=== PATIENT | male | born 1955 | race Caucasian/White ===

== ENCOUNTER → 2019-11-15 09:40 | Outpatient (CLI) | payer BC, SELFPAY ==
--- NOTE | ~2019-11-15 | MR_ITS ---
EXAMINATION: MR shoulder RT wo con DATE: 11/15/2019 10:33 INDICATION: Right shoulder pain radiating from the neck into the right arm. TECHNIQUE: Magnetic resonance imaging (MRI) of the right shoulder was performed without intravenous c ontrast. Sequences included axial PD-weighted FS FSE, coronal oblique PD-weighted FS FSE, coronal obl ique T2-weighted FS FSE, sagittal PD-weighted FS FSE, and sagittal T1-weighted SE. COMPARISON: None. FINDINGS: Coracoacromial arch: The acromion undersurface is curved in morphology (type II). The coracoacromial ligament is normal. M ild acromioclavicular osteoarthritis. Rotator cuff: The supraspinatus, subscapularis and teres minor tendons are normal. Mild tendinopathy without discre te tear at the distal infraspinatus tendon. Normal rotator cuff muscle bulk and signal. Biceps tendon, glenoid labrum and glenohumeral cartilage: Mild tendinopathy and longitudinal split tearing of the long head biceps tendon. Linear increased sig nal extending peripherally into the 12:00 position of the superior glenoid labrum consistent with sma ll labral tear. There is degeneration with mild increased signal and irregular margins to the posteri or superior glenoid labrum. Glenohumeral cartilage is normal. Fluid: Physiologic amount of fluid in the glenohumeral joint and biceps tendon sheath. No loose osteochondra l bodies. Minimally increased fluid signal along the subacromial/subdeltoid bursa consistent with neg ligible bursitis. Bones: Normal marrow signal with no edema, fracture or abnormal marrow replacing process. Mild cystic change at the greater tuberosity along the middle facet footplate of the infraspinatus tendon. IMPRESSION: 1. Mild infraspinatus tendinopathy without discrete tear. 2. Small tear at the superior glenoid labrum with less well-defined degeneration at the posterior sup erior labrum. 3. Mild tendinopathy and longitudinal split tearing of the long head biceps tendon. 4. Mild acromioclavicular osteoarthritis. Reviewed, dictated and finalized at location A. IMPRESSION: 1. Mild infraspinatus tendinopathy without discrete tear. 2. Small tear at the superior glenoid labrum with less well-defined degeneratio n at the posterior superior labrum. 3. Mild tendinopathy and longitudinal split tearing of the long head biceps ten don. 4. Mild acromioclavicular osteoarthritis.
== END ==
PROVIDERS: PCP Family Medicine; Visit Provider Orthopaedic Surgery
DX: M19.011 Primary osteoarthritis, right shoulder (principal)
CPT/HCPCS: 73221

== ENCOUNTER 2019-12-02 12:37 | Outpatient (CLI) | payer BC, SELFPAY ==
--- NOTE | ~2019-12-02 | XR_ITS ---
EXAMINATION: XR lg joint inject/asp w image DATE: 12/02/2019 13:42 INDICATION: Right shoulder pain TECHNIQUE: A time-out was performed to verify the patient's name, date of , and procedure to b e performed. The procedure including the risks, benefits, and alternatives was discussed with the pat ient. Risks discussed included bleeding and infection. The patient understood the risks and agreed to proceed. The skin overlying the rotator cuff interval of the right glenohumeral joint was prepped a nd draped in usual sterile fashion. Anesthetic was administered with 1% lidocaine subcutaneously. A 22 G needle was advanced under fluoroscopic guidance into the joint. Injection of 0.6 mL of Omnipaq ue 240 confirmed intra-articular position of the needle. Subsequently, injectate consisting of 4 mL of a 3:1 mixture of 1% lidocaine: 80 mg/mL Depo-Medrol for a total dose of 80 mg Depo-Medrol was inst illed. Washout of contrast was seen confirming intra-articular administration. The needle was removed and the entry site was cleaned and dressed. There were no immediate complications. Fluoroscopy expo sure time was 0.1 minutes. The total number of images was 2. FINDINGS: Real-time fluoroscopy demonstrates the needle in the right glenohumeral joint. Patient's pa in prior to procedure:8/10. Patient's pain following the procedure: 0/10. IMPRESSION: 1. Right glenohumeral injection of local anesthetic and steroid with decrease in the patient's presen ting pain. Reviewed, dictated and finalized at location A. IMPRESSION: 1. Right glenohumeral injection of local anesthetic and steroid with decrease i n the patient's presenting pain.
== END 2019-12-02 12:38 | disposition home or self-care (01) ==
PROVIDERS: PCP Family Medicine; Visit Provider Orthopaedic Surgery
DX: M25.511 Pain in right shoulder (principal)
CPT/HCPCS: 20610; 77002; J1040; Q9966

== ENCOUNTER → 2020-10-19 07:45 | Outpatient (CLI) | payer MEDICARE, SELFPAY ==
--- NOTE | ~2020-10-19 | CT_ITS ---
EXAMINATION: CT lung screening EXAM DATE: 10/19/2020 08:25 INDICATION: Z87.891 - Personal history of nicotine dependence. TECHNIQUE: Spiral low dose CT of the chest without contrast. Axial, coronal and sagittal images were reviewed. The dose-length product (DLP) for this examination was 133.07 mGy-cm. The exposure was t ailored according to patient size (auto mA exposure control), and iterative reconstruction (ASIR) was used as additional dose reduction technique. There is no prior study for comparison. FINDINGS: Several punctate nodules likely noncalcified granulomas. There is mild emphysema and hyper inflation. Tracheobronchial tree is patent. There is no mediastinal, hilar or axillary lymphadenop athy. There are no pleural or pericardial effusions. There is no pneumothorax. Heart normal in size. There is mild coronary arterial calcification, arterial sclerosis. Cervical fusion hardware. Upper abdomen is unremarkable. There is thoracic spondylosis without osteoblastic or osteolytic l esions identified. IMPRESSION: Lung-RADS category 2, benign appearance or behavior (<1% chance of malignancy); recommend continued LDCT screening in 1 year. Reviewed, dictated and finalized at location B.
--- NOTE | ~2020-10-19 | US_ITS ---
EXAMINATION: US aorta [facility] DATE: 10/19/2020 08:57 INDICATION: Abdominal aortic aneurysm screening with risk factors of hypertension, hypercholesterolem ia and prior smoking TECHNIQUE: Grayscale, color Doppler, and pulsed Doppler images of the aorta and common iliac arteries were obtained. COMPARISON: None. FINDINGS: The proximal aorta measures 2.4 cm. The mid aorta measures 2.1 cm. The distal aorta measures 2.0 cm. The right common iliac artery measures 1.3 cm. The left common iliac artery measures 1.3 cm. IMPRESSION: 1. Normal caliber abdominal aorta. Reviewed, dictated and finalized at location A.
== END ==
PROVIDERS: PCP Family Medicine; Visit Provider Physician Assistant
DX: Z12.2 Encounter for screening for malignant neoplasm of respiratory organs (principal); Z87.891 Personal history of nicotine dependence; Z13.6 Encounter for screening for cardiovascular disorders
CPT/HCPCS: 71271; 76706

== ENCOUNTER → 2020-11-18 03:15 | Outpatient (CLI) | payer MEDICARE, SELFPAY ==
[2020-11-18 20:00] LABS: SARS-CoV-2 RNA PCR Negative
== END ==
PROVIDERS: PCP Family Medicine; Visit Provider Physician Assistant
DX: J02.9 Acute pharyngitis, unspecified (principal); R09.81 Nasal congestion; R09.89 Other specified symptoms and signs involving the circulatory and respiratory systems; Z20.822 Contact with and (suspected) exposure to COVID-19
CPT/HCPCS: C9803; U0003; U0005

== ENCOUNTER 2020-11-23 11:34 | Emergency (ER) | payer MEDICARE, SELFPAY ==
[2020-11-23 11:45] VITALS: BP 135/82; PULSE 65; RESP 16; TEMP 36.1; O2SAT 99
--- NOTE | 2020-11-23 12:37 | ED.URI ---
HPI - URI/Sore Throat General Chief Complaint: Upper Respiratory Infection Stated Complaint: Congestion,Cough Time Seen by Provider: 11/23/20 12:37 Source: patient, RN notes reviewed and old records reviewed Mode of arrival: ambulatory Limitations: no limitations History of Present Illness HPI Narrative: 65-year-old male who presents to [facility] with complaints of sinus congestion with facial pressure for the past 8 days. Patient states that he had a negative PCR Covid test on the of this month. Patient states that he has history of some sinus problems and he has history of Menieres disease for which he has seen a specialist at [place] and takes betahistine. Patient reports that he has not had a fever, no sore throat, rare cough, denies any chills or body aches. He states that he has been taking Mucinex DM with some improvement in his symptoms. He states that he has an appointment with his physician later in the week. MD elicited complaint: rhinorrhea and nasal congestion Pertinent past history: sinusitis Related Data Allergies Allergy/AdvReac Type Severity Reaction Status Date / Time No Known Allergies Allergy Unknown Verified 11/23/20 11:57 Review of Systems Review of Systems: CONSTITUTIONAL: Denies fever, chills, or sweats. EYES: Denies visual changes, redness, or discharge. ENT: Positive rhinorrhea, congestion, no sore throat, or otalgia has ringing in ears. CARDIOVASCULAR: Denies chest pain, palpitations, or edema. RESPIRATORY: Denies acute cough or dyspnea. GASTROINTESTINAL: Denies abdominal pain, nausea, vomiting, or diarrhea. GENITOURINARY: Denies dysuria or hematuria. SKIN: Denies rash or itching. MUSCULOSKELETAL: Denies back pain, joint pain, or myalgia. NEUROLOGIC: positive frontal headache,no numbness, or weakness. PSYCHIATRIC: Positive history of anxiety or depression. All systems reviewed & are unremarkable except as noted in HPI and below PMFSH Past Medical History Medical History (Updated 11/26/20 @ 13:35 by Shelby Briggs NP) Arthritis Benign prostatic hyperplasia Generalized anxiety disorder Hypertension Meniere disease Mixed hyperlipidemia Surgical History Surgical History (Updated 11/26/20 @ 13:35 by Shelby Briggs NP) H/O hemorrhoidectomy History of fusion of cervical spine Status post fusion of wrist Family History Family History Father Hypertension Family history of elevated blood lipids Social History Social History (Updated 11/26/20 @ 13:38 by Shelby Briggs NP) Smoking status: Former smoker Alcohol intake: current Substance use: never Living arrangements: with family Occupation/Education: retired Gender identity (if verbalized by the patient): Male Exam Narrative: GENERAL: Well-appearing, well-nourished, and in no acute distress. HEAD: Normocephalic, atraumatic. EYES: PERRLA and EOMI. ENT: Nares red with swollen turbinates, clear to light yellow rhinorrhea no epistaxis. Mucous membranes moist.TM's normal with good light reflex, throat mild redness with no lesions or exudates, no tonsil enlargement post nasal drainage noted to back of throat. NECK: Supple.no lymphadenopathy CHEST: Clear to auscultation. No respiratory distress.SAO2 99% on room air, no acute cough or any tachypnea noted HEART: Regular rate and rhythm. No murmur heard. Normal peripheral pulses. ABDOMEN: Soft, nontender, nondistended, normal active bowel sounds. EXTREMITIES: Normal range of motion. No edema. SKIN: Warm, dry, no rash. NEURO: No focal deficits. Alert and oriented x3. Course Vital Signs Vital signs: Vital Signs Temperature 36.1 C L 11/23/20 11:45 Pulse Rate 65 11/23/20 11:45 Respiratory Rate 16 11/23/20 11:45 Blood Pressure 135/82 11/23/20 11:45 Pulse Oximetry 99 11/23/20 11:45 Temperature 36.1 C L 11/23/20 11:45 Pulse Rate 65 11/23/20 11:45 Respiratory Rate 16 11/23/20 11:45 Blood
== END 2020-11-23 13:03 | disposition home or self-care (01) ==
PROVIDERS: Emergency Provider Registered Nurse; PCP Family Medicine
DX: J01.90 Acute sinusitis, unspecified (principal); Z87.891 Personal history of nicotine dependence; M19.90 Unspecified osteoarthritis, unspecified site; I10 Essential (primary) hypertension; E78.5 Hyperlipidemia, unspecified; H81.09 Meniere's disease, unspecified ear; N40.0 Benign prostatic hyperplasia without lower urinary tract symptoms
CPT/HCPCS: 99213; G0463

== ENCOUNTER 2020-12-17 01:02 | Day surgery (SDC) | payer MEDICARE, SELFPAY ==
[2020-12-13 12:28] VITALS: BMI 24.3
[2020-12-17 08:17] VITALS: BP 123/87; PULSE 63; RESP 16; TEMP 35.9; O2SAT 99
[2020-12-17] MEDS: LACTATED RINGERS 1,000 ML 150 ML IV CONT (08:28)
--- NOTE | 2020-12-17 08:30 | WPDGICN ---
Assessment and Plan Assessment and plan (1) Family history of colon cancer in father: Code(s): Z80.0 - Family history of malignant neoplasm of digestive organs Status: Acute Assessment and Plan: Patient's father had colon cancer. For this reason screening colonoscopy is to be performed now and could be considered at 5 year intervals in the future. GI Consult Note Consult date/time: 12/17/20 08:30 HPI: Jose Armando Weinberg is a 65 year old male Presents for screening colonoscopy. Patient reports his current weight appetite bowel movements are normal. He denies abdominal pain. He has had no bleeding. Family history is significant his father had colon cancer at age 83. Patient's last colonoscopy was more than 10 years ago. He presents today for follow-up examination. Review of Systems Review of Systems: All systems reviewed & are unremarkable except as noted in HPI and below PMFSH Past Medical History Medical History (Updated 12/17/20 @ 08:31 by Epi Sommers MD) Arthritis Benign prostatic hyperplasia Generalized anxiety disorder Hypertension Meniere disease Mixed hyperlipidemia Surgical History Surgical History (Updated 11/26/20 @ 13:35 by Shelby Briggs NP) H/O hemorrhoidectomy History of fusion of cervical spine Status post fusion of wrist Family History Family History Father Hypertension Family history of elevated blood lipids Social History Social History (Updated 11/26/20 @ 13:38 by Shelby Briggs NP) Smoking packs per day: 1 Smoking cigarettes per day: 20.0 Years smoked: 40 Smoking pack-years: 40.00 Smoking status: Former smoker Tobacco type: cigarettes Alcohol intake: current Drinks per week: 10 Alcohol use details: WINE Substance use: never Substance use type: does not use Living arrangements: with family Gender identity (if verbalized by the patient): Male Spiritual care concerns: No Meds Home Medications and Allergies Home Medications Medication Instructions Recorded Confirmed Type meclizine 25 mg chewable tablet 25 mg PO BID PRN #90 tablet 11/13/19 12/17/20 Rx amlodipine 5 mg tablet 5 mg PO DAILY #90 tablet 10/01/20 12/17/20 Rx atorvastatin 10 mg tablet 10 mg PO DAILY #90 tablet 10/01/20 12/17/20 Rx buspirone 5 mg tablet 5 mg PO DAILY #90 tablet 10/01/20 12/17/20 Rx escitalopram oxalate 10 mg tablet 10 mg PO DAILY #90 tablet 10/01/20 12/17/20 Rx tamsulosin 0.4 mg capsule 0.4 mg PO DAILY #90 cap 10/01/20 12/17/20 Rx triamterene 37.5 1 tablet PO QAM #90 tablet 10/01/20 12/17/20 Rx mg-hydrochlorothiazide 25 mg tablet Adult Probiotic 1 cap PO DAILY 12/13/20 12/17/20 History Beta-Histine 1 cap PO DAILY 12/13/20 12/17/20 History ascorbic acid (vitamin C) 1 g PO DAILY 12/13/20 12/17/20 History cholecalciferol (vitamin D3) 125 mcg PO DAILY 12/13/20 12/17/20 History [Vitamin D3] digestive enzymes 1 tab-cap PO DAILY 12/13/20 12/17/20 History Allergies Allergy/AdvReac Type Severity Reaction Status Date / Time No Known Allergies Allergy Unknown Verified 12/17/20 08:16 Vital Signs Vital Signs - 24 hr 12/17/20 08:17 Temperature 96.7 F L Pulse Rate 63 Respiratory Rate 16 Blood Pressure 123/87 Pulse Oximetry 99 Exam Narrative: Physical exam reveals patient to be alert. Vital signs stable. HEENT exam is unremarkable. Patient is anicteric. Lungs are clear to auscultation and percussion. Heart is without murmur or extra sounds. Abdominal exam bowel sounds are present soft nontender with no organomegaly. Digital external rectal exam is normal.
--- NOTE | 2020-12-17 08:41 | WPDANESEPPF ---
Anes - Initial Pre Proc Eval Procedure: Operation Date: 12/17/20 09:00 Proposed Procedures p Screening Colonoscopy - Epi Sommers MD Date/Time: 12/17/20 08:41 Surgeon: Epi Sommers MD Pre Op Diagnosis: family hx of colon ca Z80.0 Patient Data Age: 65 Gender: M Height: 1.88 m Weight: 86 kg Last Vital Signs Temp 96.7 F L 12/17/20 08:17 Pulse 63 12/17/20 08:17 Resp 16 12/17/20 08:17 BP 123/87 12/17/20 08:17 Pulse Ox 99 12/17/20 08:17 Allergies Allergy/AdvReac Type Severity Reaction Status Date / Time No Known Allergies Allergy Unknown Verified 12/17/20 08:16 Home Medications Medication Instructions Recorded Confirmed Type meclizine 25 mg chewable tablet 25 mg PO BID PRN #90 tablet 11/13/19 12/17/20 Rx amlodipine 5 mg tablet 5 mg PO DAILY #90 tablet 10/01/20 12/17/20 Rx atorvastatin 10 mg tablet 10 mg PO DAILY #90 tablet 10/01/20 12/17/20 Rx buspirone 5 mg tablet 5 mg PO DAILY #90 tablet 10/01/20 12/17/20 Rx escitalopram oxalate 10 mg tablet 10 mg PO DAILY #90 tablet 10/01/20 12/17/20 Rx tamsulosin 0.4 mg capsule 0.4 mg PO DAILY #90 cap 10/01/20 12/17/20 Rx triamterene 37.5 1 tablet PO QAM #90 tablet 10/01/20 12/17/20 Rx mg-hydrochlorothiazide 25 mg tablet Adult Probiotic 1 cap PO DAILY 12/13/20 12/17/20 History Beta-Histine 1 cap PO DAILY 12/13/20 12/17/20 History ascorbic acid (vitamin C) 1 g PO DAILY 12/13/20 12/17/20 History cholecalciferol (vitamin D3) 125 mcg PO DAILY 12/13/20 12/17/20 History [Vitamin D3] digestive enzymes 1 tab-cap PO DAILY 12/13/20 12/17/20 History Patient hx anesthesia problems: none Family hx anesthesia problems: none Results Review: All pre-operative results and documents have been reviewed as part of the pre-operative evaluation. [facility] Past Medical History Medical History (Updated 12/17/20 @ 08:31 by Epi Sommers MD) Arthritis Benign prostatic hyperplasia Generalized anxiety disorder Hypertension Meniere disease Mixed hyperlipidemia Surgical History Surgical History (Updated 11/26/20 @ 13:35 by Shelby Briggs NP) H/O hemorrhoidectomy History of fusion of cervical spine Status post fusion of wrist Family History Family History Father Hypertension Family history of elevated blood lipids Social History Social History (Updated 11/26/20 @ 13:38 by Shelby Briggs NP) Smoking packs per day: 1 Smoking cigarettes per day: 20.0 Years smoked: 40 Smoking pack-years: 40.00 Smoking status: Former smoker Tobacco type: cigarettes Alcohol intake: current Drinks per week: 10 Alcohol use details: WINE Substance use: never Substance use type: does not use Living arrangements: with family Gender identity (if verbalized by the patient): Male Spiritual care concerns: No Anes - Eval Final PreProcedure Day of Procedure 12/17/20 08:41 Patient weight: overweight Heart: regular rate and rhythm Lungs: clear to auscultation Airway: Mallampati scale class II Neurological: alert and oriented Last oral intake: >/= 8 hours ASA classification: III Emergent: no Anesthetic plan: proceed Anesthesia type and monitoring: general GIVS and standard monitoring Results Review: All pre-operative results and documents have been reviewed as part of the pre-operative evaluation. Informed Consent: The patient's anesthetic plan and its attendant risks and benefits were discussed with the patient/family/POA. Questions were solicited and answers provided to the satisfaction of the patient/family/POA.
[2020-12-17 09:22] VITALS: BP 108/67; PULSE 57; RESP 23; O2SAT 94
[2020-12-17 09:32] VITALS: BP 119/74; PULSE 51; RESP 14; O2SAT 96
[2020-12-17 09:42] VITALS: BP 143/82; PULSE 49; RESP 19; O2SAT 100
== END 2020-12-17 09:46 | disposition home or self-care (01) ==
PROVIDERS: PCP Family Medicine; Visit Provider Internal Medicine Gastroenterology
PROC: 0DJD8ZZ Inspection of Lower Intestinal Tract, Via Natural or Artificial Opening Endoscopic (ICD-10-PCS; CPT 45378; principal; 2020-12-17 09:00)
DX: Z12.11 Encounter for screening for malignant neoplasm of colon (principal); K57.30 Diverticulosis of large intestine without perforation or abscess without bleeding; K64.8 Other hemorrhoids; I10 Essential (primary) hypertension; E78.5 Hyperlipidemia, unspecified; N40.0 Benign prostatic hyperplasia without lower urinary tract symptoms; M19.90 Unspecified osteoarthritis, unspecified site; H81.09 Meniere's disease, unspecified ear; F41.1 Generalized anxiety disorder; Z87.891 Personal history of nicotine dependence; Z80.0 Family history of malignant neoplasm of digestive organs
CPT/HCPCS: G0105; J2001; J2704; J7120

== ENCOUNTER 2021-07-08 14:28 | Emergency (ER) | payer MEDICARE, SELFPAY ==
--- NOTE | ~2021-07-08 | XR_ITS ---
EXAMINATION: 1. XR ankle LT min 3V 2. XR heel LT min 2V DATE: 07/08/2021 14:58 INDICATION: Left ankle pain. Fall. TECHNIQUE: 4 views of left ankle and 2 views of left calcaneus were obtained. COMPARISON: None. FINDINGS: LEFT ANKLE: There is a comminuted joint-depression fracture of calcaneus. There is mild midfoot osteo arthritis. There is ankle soft tissue swelling, lateral worse than medial. LEFT CALCANEUS: There is a comminuted joint-depression fracture of calcaneus with decreased Boehler's angle. There is mild midfoot osteoarthritis. IMPRESSION: 1. Comminuted joint-depression fracture of calcaneus. Reviewed, dictated and finalized at location A. IMPRESSION: 1. Comminuted joint-depression fracture of calcaneus.
[2021-07-08 14:39] VITALS: BP 136/80; PULSE 60; RESP 16; TEMP 37.2; O2SAT 99
--- NOTE | 2021-07-08 14:40 | ED.LOWEXIN ---
HPI - Extremity Injury (Lower) General Chief Complaint: Extremity Injury, Lower Stated Complaint: left foot pain Time Seen by Provider: 07/08/21 14:40 Source: patient Mode of arrival: ambulatory Limitations: no limitations History of Present Illness HPI Narrative: 65-year-old male presents to the [facility] with complaints of left heel pain. Patient reports that he was on a ladder, about 8-10 feet, working on his deck in the rain when he slipped and fell into his yard landing on his feet. Complains of left heel pain. No open wounds. Sensation intact distal to injury. Significant swelling and bruising noted to the lateral aspect foot, lateral malleolus. No midline tenderness. Pelvis is stable, no hip pain, no abdominal pain. No knee pain. Denies hitting head. No loss of consciousness. No blurry vision or change in vision. No saddle anesthesia. No loss or retention of bowel or bladder Related Data Home Medications Medication Instructions Recorded Confirmed Adult Probiotic 1 cap PO DAILY 12/13/20 07/08/21 Beta-Histine 1 cap PO DAILY 12/13/20 07/08/21 ascorbic acid (vitamin C) 1 g PO DAILY 12/13/20 07/08/21 cholecalciferol (vitamin D3) 125 mcg PO DAILY 12/13/20 07/08/21 [Vitamin D3] digestive enzymes 1 tab-cap PO DAILY 12/13/20 07/08/21 Allergies Allergy/AdvReac Type Severity Reaction Status Date / Time No Known Allergies Allergy Unknown Verified 07/08/21 14:44 Review of Systems Review of Systems: All systems reviewed & are unremarkable except as noted in HPI and below Constitutional: Constitutional: Reports no additional constitutional complaints, Denies chills and Denies fever(s) Eyes: Eyes: Reports no additional eye complaints, Denies change in vision and Denies photophobia ENT: Reports system reviewed and no additional complaints, except as documented Cardiovascular: Cardiovascular: Reports no additional cardiovascular complaints, Denies chest pain and Denies radiating jaw, neck or arm pain Respiratory: Respiratory: Reports no additional respiratory complaints, Denies cough and Denies dyspnea Gastrointestinal: Gastrointestinal: Reports no additional gastrointestinal complaints and Denies abdominal pain Genitourinary: Genitourinary: Reports no additional male genitourinary complaints and Denies urinary incontinence Musculoskeletal: Musculoskeletal: Reports as per HPI, Denies back pain, Denies myalgias, Reports arthralgias, Reports joint swelling (Left ankle), Denies neck pain and Denies numbness Integumentary/Breasts: Skin/Breast: Reports system reviewed and no additional complaints, except as docu Neurologic: Reports system reviewed and no additional complaints, except as documented, Denies dizziness, Denies focal weakness, Denies numbness and Denies weakness Psychiatric: Psychiatric: Reports no additional psychiatric complaints Allergic/Immunologic: Allergic/Immunologic: Reports no additional allergic/immunologic complaints [facility] Past Medical History Medical History (Updated 07/08/21 @ 16:16 by Ginny Conroy APRN) Arthritis Benign prostatic hyperplasia Generalized anxiety disorder Hypertension Meniere disease Mixed hyperlipidemia Surgical History Surgical History H/O hemorrhoidectomy History of fusion of cervical spine Status post fusion of wrist Family History Family History Father Hypertension Family history of elevated blood lipids Social History Social History Smoking packs per day: 1 Smoking cigarettes per day: 20.0 Years smoked: 40 Smoking pack-years: 40.00 Smoking status: Former smoker Tobacco type: cigarettes Alcohol intake: current Drinks per week: 10 Alcohol use details: WINE Substance use: never Substance use type: does not use Gender identity (if verbalized by the patient): Male
[2021-07-08 14:45] VITALS: BP 136/80; PULSE 60; RESP 16; TEMP 37.2; O2SAT 99
== END 2021-07-08 16:45 | disposition home or self-care (01) ==
PROVIDERS: Emergency Provider Nurse Practitioner; PCP Family Medicine
DX: S92.002A Unspecified fracture of left calcaneus, initial encounter for closed fracture (principal); W11.XXXA Fall on and from ladder, initial encounter; N40.0 Benign prostatic hyperplasia without lower urinary tract symptoms; M19.90 Unspecified osteoarthritis, unspecified site; I10 Essential (primary) hypertension; E78.2 Mixed hyperlipidemia; H81.09 Meniere's disease, unspecified ear; Z87.891 Personal history of nicotine dependence
CPT/HCPCS: 29515; 73610; 73650; 99214; G0463